=== PATIENT | female | born 1970 | race Caucasian/White ===

== ENCOUNTER 2025-01-12 17:43 | Emergency (ER) | payer SELFPAY ==
[2025-01-12 17:46] VITALS: BP 130/94
[2025-01-12] MEDS: FLEXERIL 5 MG PO (20:32)
[2025-01-12] MEDS: TYLENOL 650 MG PO (20:33)
[2025-01-12 20:36] VITALS: BMI 29.7
[2025-01-12 20:38] VITALS: BP 130/81
[2025-01-12 22:44] VITALS: BP 134/92
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
== END 2025-01-12 22:51 | disposition home or self-care (01) ==
LOC: EMR 17:43
PROVIDERS: EMERGENCY PHYSICIAN Emergency Medicine; FAMILY PHYSICIAN Family Medicine
DX: S16.1XXA Strain of muscle, fascia and tendon at neck level, initial encounter (principal); S29.012A Strain of muscle and tendon of back wall of thorax, initial encounter; V47.5XXA Car driver injured in collision with fixed or stationary object in traffic accident, initial encounter; Y92.411 Interstate highway as the place of occurrence of the external cause; Z98.1 Arthrodesis status
CPT/HCPCS: 99284; 70450; 71101; 72125

== ENCOUNTER 2025-02-08 06:24 | Day surgery (SDC) | payer BC, SELFPAY | END 2025-02-08 12:55 | disposition home or self-care (01) | LOC: GI 06:24 | PROVIDERS: ATTENDING PHYSICIAN Internal Medicine Gastroenterology | DX: Z12.11 Encounter for screening for malignant neoplasm of colon (principal); K57.30 Diverticulosis of large intestine without perforation or abscess without bleeding; K64.8 Other hemorrhoids; R13.10 Dysphagia, unspecified; Z98.84 Bariatric surgery status | CPT/HCPCS: 43239; G0121; 88305; 88342 ==